=== PATIENT | male | born 1985 | race Caucasian/White ===

== ENCOUNTER 2021-09-30 16:55 | Emergency (ER) | payer SELFPAY ==
[2021-09-30 17:42] LABS: Acetaminophen Less than 6.0 mcg/mL (10.0-30.0); Alcohol 171 mg/dL (Less than 10); CK (CPK) 46 U/L (30-200); Salicylate Less than 8.0 mg/dL (15.0-30.0)
[2021-09-30 17:44] LABS: ALT (SGPT) 17 U/L (8-55); AST (SGOT) 16 U/L (5-34); Albumin 4.3 g/dL (3.5-5.0); Alkaline Phosphatase 57 U/L (40-110); Anion Gap 18 mmol/L (10-20); BUN (Urea Nitrogen) 13 mg/dL (8.9-20.6); Bilirubin, Total 0.5 mg/dL (0.2-1.2); Calc. Creatinine Clearance 0 mL/min (70-130); Calcium 9.3 mg/dL (7.8-10.44); Carbon Dioxide 21 mmol/L (22-29); Chloride 111 mmol/L (98-107); Globulin 3.1 g/dL (2.4-3.5); Glucose 90 mg/dL (70-105); Potassium 3.7 mmol/L (3.5-5.1); Protein, Total 7.4 g/dL (6.0-8.3); Sodium 146 mmol/L (136-145)
[2021-09-30 17:47] LABS: Hemoglobin 15.3 g/dL (13.5-17.5); Mean Corpuscular HGB CONC 34.2 g/dL (32.0-36.0); Mean Corpuscular Hemoglobin 31.8 pg (27.0-33.0); Mean Corpuscular Volume 93.1 fl (81.2-95.1); Mean Platelet Volume 9.7 fl (7.4-10.4); Platelet Count 317 10x3/uL (150-450); RBC Distribution Width 13.1 % (11.5-14.5); Red Blood Cell (RBC) Count 4.81 10x6/uL (4.32-5.72); White Blood Cell (WBC) Count 11.9 10x3/uL (3.5-10.5)
[2021-09-30 18:34] LABS: MDiff Complete? YES
[2021-09-30 18:37] LABS: Eosinophils 7 % (0-10); Lymphocytes 58 % (21-51); Monocytes 11 % (0-10); Neutrophil 24 % (42-75)
[2021-09-30 18:38] LABS: Platelet Morphology Comment Appears Adequate
[2021-09-30] MEDS ORDERED: Insulin Regular 300 UNITS/3 ML VIAL ONE (19:19)
[2021-09-30] MEDS ORDERED: Calcium Chloride 1 GM/10 ML Abboject SYRINGE ONE (19:19)
[2021-09-30] MEDS ORDERED: Dextrose 50% Abboject 50 ML SYRINGE ONE (19:19)
[2021-09-30] MEDS ORDERED: Sodium Bicarb 50 MEQ/50 ML Abboject 8.4% SYRINGE ONE (19:19)
== END 2021-09-30 19:54 | disposition home or self-care (01) ==
LOC: CSHERS 16:55
DX: F10.129 Alcohol abuse with intoxication, unspecified (principal); F11.10 Opioid abuse, uncomplicated; F16.10 Hallucinogen abuse, uncomplicated; E11.9 Type 2 diabetes mellitus without complications; F17.210 Nicotine dependence, cigarettes, uncomplicated; Y90.6 Blood alcohol level of 120-199 mg/100 ml
CPT/HCPCS: 36415; 51701; 80053; 80307; 82550; 84443; 85025; 93005; 93010; 94760; J1815